=== PATIENT | female | born 2005 | race African-American/Black ===

== ENCOUNTER 2025-04-09 07:22 | Emergency (ER) | payer OTHER ==
[~2025-04-09] VITALS: Ht 157.5 cm; Wt 59.0 kg
[2025-04-09 07:24] VITALS: BP 133/86; PULSE 92; RESP 16; TEMP 37; O2SAT 99
== END 2025-04-09 09:04 | disposition home or self-care (01) ==
LOC: ER 07:22
DX: R51.9 Headache, unspecified (principal); Y08.89XA Assault by other specified means, initial encounter; Y93.89 Activity, other specified; Y92.89 Other specified places as the place of occurrence of the external cause; Y99.8 Other external cause status
CPT/HCPCS: 99281

== ENCOUNTER 2025-05-31 13:30 | Emergency (ER) | payer OTHER ==
[~2025-05-31] VITALS: Ht 162.6 cm; Wt 60.0 kg
[2025-05-31 13:48] VITALS: O2SAT 99
[2025-05-31] MEDS: TETRACAINE 0.5% OPHTH DROPS 4ML BOTHEYE ONE (15:37)
[2025-05-31] MEDS: FLUORESCEIN SODIUM 1MG/STRIP BOTHEYE ONE (15:37)
[2025-05-31] MEDS ORDERED: AMOX1TAB16 MT (16:15)
[2025-05-31] MEDS ORDERED: OCUFLX EACHEYE (16:15)
[2025-05-31 17:09] VITALS: BP 115/73; PULSE 81; RESP 18; TEMP 36.9; O2SAT 99
== END 2025-05-31 17:10 | disposition home or self-care (01) ==
LOC: ER 13:30
DX: H10.89 Other conjunctivitis (principal)
CPT/HCPCS: 99283